=== PATIENT | female | born 1950 | race Caucasian/White ===

== ENCOUNTER 2017-11-25 15:26 | Emergency (ER) | payer MEDICARE, OTHER ==
[2017-11-25] MEDS ORDERED: ACETAMINOPHEN 500 MG 500 MG TAB PO ONE (17:19)
[2017-11-25] MEDS ORDERED: ACETAMINOPHEN 500 MG 500 MG TAB ONE (17:30)
[2017-11-25 17:55] VITALS: BP 117/65; PULSE 89; RESP 18; TEMP 97.9; O2SAT 91
== END 2017-11-25 19:05 | disposition home or self-care (01) | DRG 914 ==
LOC: ED 15:26
DX: S49.92XA Unspecified injury of left shoulder and upper arm, initial encounter (principal); S01.01XA Laceration without foreign body of scalp, initial encounter
CPT/HCPCS: 12001; 99284; G0168; 70450; 73030; 99282

== ENCOUNTER 2018-02-19 16:30 | Emergency (ER) | payer MEDICARE, OTHER ==
[2018-02-19 16:36] VITALS: RESP 20; TEMP 97.9; O2SAT 92
[2018-02-19] MEDS ORDERED: TDAP VACCINE 0.5 ML SUS IM ONE ×2 (17:18→17:31)
[2018-02-19 17:28] LABS: BASOPHILS % (AUTO) 1 % (0-3); EOSINOPHILS % (AUTO) 4 % (0-9); HEMATOCRIT 41 % (35-47); HEMOGLOBIN 12.5 gm/dl (12.0-15.5); LYMPHOCYTES % (AUTO) 28.6 % (10-50); MEAN CORPUSCULAR HEMOGLOBIN 23.9 pg (27.0-32.0); MEAN CORPUSCULAR HGB CONC 30.2 gm/dl (32.0-36.0); MONOCYTES % (AUTO) 7.2 % (0-12); NEUTROPHILS % (AUTO) 59.9 % (37-80)
[2018-02-19 17:37] LABS: MEAN CORPUSCULAR VOLUME 79 fL (81-99)
[2018-02-19 17:44] LABS: ANISOCYTOSIS SLIGHT AMT; INR 0.88 (0.86-1.12); POIKILOCYTOSIS SLIGHT AMT; STOMATOCYTES PRESENT
[2018-02-19 17:46] LABS: ALBUMIN 3.4 gm/dl (3.4-5.0); BILIRUBIN,TOTAL 0.3 mg/dl (0.2-1.0); CALCIUM 8.6 mg/dl (8.5-10.1); CARBON DIOXIDE 29.3 mEq/L (21-32); CREATININE 0.76 mg/dl (0.60-1.00); POTASSIUM 3.7 mMol/L (3.5-5.1); TOTAL PROTEIN 6.6 gm/dl (6.4-8.2)
[2018-02-19] MEDS ORDERED: LIDOCAINE HCL 2% MPF 10 ML SOL SC ONE (17:56)
[2018-02-19] MEDS ORDERED: LIDOCAINE HCL 2% MPF 10 ML SOL ONE (17:57)
[2018-02-19] MEDS ORDERED: BACITRACIN 500 U/GM OIN TOP ONE ×2 (18:38)
[2018-02-19 19:30] VITALS: BP 100/69; PULSE 78
== END 2018-02-19 19:05 | disposition home or self-care (01) | DRG 605 ==
LOC: ED 16:30
DX: S01.81XA Laceration without foreign body of other part of head, initial encounter (principal); W01.0XXA Fall on same level from slipping, tripping and stumbling without subsequent striking against object, initial encounter
CPT/HCPCS: 12015; 36415; 70450; 80053; 85025; 85610; 90471; 90715; 99285; G0390; A9270-GY